=== PATIENT | male | born 1940 | race Hispanic/Latino ===

== ENCOUNTER 2018-06-01 06:19 | Emergency (ER) | payer SELFPAY ==
[2018-06-01] MEDS ORDERED: Ketorolac Tromethamine 30 MG/ML VIAL ONE (06:37)
--- NOTE | 2018-06-01 07:56 | RAD ---
LEFT HAND 3 VIEWS: Date: 06/01/18 HISTORY: Pain. No known injury. COMPARISON: None. FINDINGS: Mild loss of radiocarpal joint space height. Nonspecific calcification involving the third metacarpophalangeal joint space. Minimal degenerative c hanges of the joint spaces. No fracture. No cortical irregularity or periosteal reaction. Mild bone d emineralization. IMPRESSION: Unremarkable left hand 3 views. POS: [facility]
== END 2018-06-01 06:58 | disposition home or self-care (01) ==
LOC: ERS 06:19
DX: M79.642 Pain in left hand (principal); D64.9 Anemia, unspecified; E11.9 Type 2 diabetes mellitus without complications; E78.5 Hyperlipidemia, unspecified; Z79.84 Long term (current) use of oral hypoglycemic drugs; Z79.899 Other long term (current) drug therapy
CPT/HCPCS: 96372; J1885

== ENCOUNTER 2018-08-05 13:51 | Emergency (ER) | payer MEDICARE ==
--- NOTE | 2018-08-05 14:56 | RAD ---
LEFT FOOT THREE VIEWS: History: Pain in the left great toe, exacerbated by ambulating. Patient is a diabetic. FINDINGS: No fracture, dislocation, or bony destruction is seen. No periosteal reaction is identified. A planta r calcaneal and posterior calcaneal spurs are present. POS: [facility]
== END 2018-08-05 16:40 | disposition home or self-care (01) ==
LOC: ERS 13:51
DX: S90.212A Contusion of left great toe with damage to nail, initial encounter (principal); D64.9 Anemia, unspecified; E11.9 Type 2 diabetes mellitus without complications; E78.5 Hyperlipidemia, unspecified; Z79.899 Other long term (current) drug therapy; Z79.84 Long term (current) use of oral hypoglycemic drugs; X58.XXXA Exposure to other specified factors, initial encounter

== ENCOUNTER 2018-08-20 09:17 | Outpatient (CLI) | payer MEDICARE ==
--- NOTE | 2018-08-20 10:31 | ULT ---
ULTRASOUND ABDOMEN LIMITED: (RIGHT UPPER QUADRANT) HISTORY: 78-year-old male with right upper quadrant abdominal pain. FINDINGS: The gallbladder has normal wall thickness and has no evidence of gallstones or sludge. The hepatic e chogenicity is normal. The right kidney has normal echogenicity and has no hydronephrosis. The panc reas is visualized, although ultrasound is relatively insensitive for pancreatic pathology compared t o CT and MRI. There is no biliary dilation. The common duct caliber is 4 mm. IMPRESSION: Normal. catrachita POS: [facility]
== END 2018-08-20 09:18 | disposition home or self-care (01) ==
LOC: ULT 09:17
PROVIDERS: ATTEND Family Medicine
DX: R10.9 Unspecified abdominal pain (principal)
CPT/HCPCS: 76705